=== PATIENT | female | born 1925 | race Caucasian/White ===

== ENCOUNTER 2016-09-07 11:17 | Inpatient (IN) ==
[2016-09-07] MEDS ORDERED: Levofloxacin 750 MG/150 ML 750 MG/150 ML BAG IVPB ONE (12:20)
[2016-09-07] MEDS ORDERED: Ipratropium/Albuterol Neb 3 ML IH ONE (13:13)
--- NOTE | 2016-09-07 13:13 | Emergency Department Note ---
Disposition Clinical Impression: Community acquired pneumonia, Hypoxia Pulmonary edema Qualifiers: Chronicity: acute Qualified Code(s): J81.0 - Acute pulmonary edema Disposition: Admitted As Inpatient Condition: Good Referrals: Luca Yoder MD [Primary Care Provider] - Forms: ED Satisfaction Letter Time of Disposition: 17:33 SOB HPI - General Chief Complaint: ED Shortness of Breath/Dyspnea Stated Complaint: Irregular Heart Rhythm /Fever Time Seen by Provider: 09/07/16 11:58 Source: family Mode of arrival: ambulatory Limitations: no limitations Nursing Notes Reviewed: Yes Vital Signs Reviewed: Yes - History of Present Illness Patient presents emergency room from home with complaint of cough and difficulty with breathing. She was just seen several weeks ago. Patient denies any issues with her heart at this time she is just concerned because she has been coughing so much that she has pain in the right side of her chest wall. Denies any recent illnesses aside from his cough. She has been febrile at home but on diagnoses number. Patient denies any nausea vomiting or diarrhea headache or vision change. She denies any chest pain she just has pain with inspiration at this time. Pt Subjective Complaint: shortness of breath, cough Onset (ago): day(s) Context: other Severity: moderate Consistency/Duration: constant Improves with: nothing Worsens with: lying flat, exertion Associated symptoms: Reports: pain with inspiration, fever, cough, sputum production Cough present: Yes Cough Description: Involuntary Cough Frequency: Intermittent Sputum production: Yes Sputum Amount: Small Sputum Color: White - Related Data Home Medications Medication Instructions Recorded Confirmed Allopurinol [Zyloprim] 200 mg PO DAILY PRN 01/28/16 09/07/16 Atorvastatin [Lipitor] 20 mg PO DAILY 01/28/16 09/07/16 Calcitriol 0.25 mcg PO DAILY 01/28/16 09/07/16 Enalapril Maleate [Vasotec] 10 mg PO BID 01/28/16 09/07/16 Furosemide [Lasix] 40 mg PO DAILY 01/28/16 09/07/16 Metoprolol [Lopressor] 12.5 mg PO BID 01/28/16 09/07/16 Potassium Chloride [Klor-Con] 20 meq PO DAILY 01/28/16 09/07/16 amLODIPine [Norvasc] 5 mg PO DAILY 01/28/16 09/07/16 Enoxaparin [Lovenox] 60 mg SQ DAILY 09/07/16 09/07/16 Warfarin [Coumadin] 5 mg PO 1800 09/07/16 09/07/16 Allergies Allergy/AdvReac Type Severity Reaction Status Date / Time azithromycin Allergy Hives Verified 07/16/16 07:08 All systems ED: reviewed and negative except as stated. Constitutional: Reports: fever, weakness. Denies: chills Eyes: Denies: eye discharge ENT ED: Denies: ear pain, throat pain, congestion Cardiovascular: Reports: dyspnea on exertion, orthopnea. Denies: chest pain, palpitations, edema Respiratory: Reports: cough, dyspnea, sputum production. Denies: wheezes, hemoptysis, stridor Gastrointestinal: Denies: nausea, vomiting, diarrhea Genitourinary: Denies: dysuria, frequency Musculoskeletal: Denies: back pain, neck pain Integumentary: Denies: rash Neurological: Denies: headache, weakness Endocrine: Reports: fatigue Hematological/Lymphatic: Denies: easy bleeding Past Medical History - Past Medical History Attestation: Yes The following information was validated with the patient. 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 Absent : tenderness - Respiratory Respiratory exam: Present: respiratory distress, accessory muscle use. Absent: wheezes, stridor - Cardiovascular Cardiovascular exam: Present: regular rate, normal rhythm, normal heart sounds - Abdominal Exam Abdominal exam: Present: soft, Non-Tender, normal bowel sounds. Absent: tenderness, distention, guarding, rebound, rigidity, diminished bowel sounds, Marquis's sign, Rovsing's sign, tenderness at McBurney's Point - Extremities Exam Extremities exam: Present: normal inspection, full ROM, normal capillary refill. Absent: tenderness, pedal edema - Back Exam Back exam: Present: normal inspection, full ROM. Absent: tenderness - Neurological Exam Neurological exam: Present: alert, oriented X3, CN II-XII intact, normal gait - Skin Skin exam: Present: warm, dry, intact, normal color Course Course Narrative: Patient seen and examined the time of arrival. See history of present illness. 89-year-old female presents for complaint of cough and pain with inspiration. She was just seen and evaluated and set a hospital setting approximate 6 weeks ago for irregular heart rhythm. She then had outpatient cardioversion completed several days ago. Since having a cardioversion she was started on Lovenox bridging to Coumadin. Patient denies any cough cold congestion prior to these events. Vital signs reviewed on presentation here heart rate is regular. She is borderline febrile at 99.5. Physical exam is concerning head is atraumatic pupils equal are reactive to light. Patient is lying to the left side of the bed and protecting against the right side of her chest. She has pain with deep inspiration over the right chest wall. There is no visible signs of trauma lesions or rashes at this point. Patient has diminished aeration on the right side. Abdomen is soft nontender nondistended patient was both extremities in the upper and lower distributions on a complication. She has no signs of swelling or pitting edema in the bilateral lower extremities. Both legs are symmetrical with good pulses. Patient is concerning for possible pneumonia status post multiple evaluations as an outpatient. She has had a productive cough which she describes as frothy colored sputum. She does not focally sound like fluid overload secondary to pulmonary edema but we will consider this as a differential. EKG troponin labs including BMP ordered at this time. Urinalysis and chest x-ray pending. We will continue to monitor here and treat symptoms as they provide. If the symptoms and the differential are not determined with the chest x-ray CT imaging might be warranted. Patient does not have any acute signs of pulmonary emboli and she has been on Lovenox and Coumadin for the last 2 weeks. Low clinical suspicion of this at this time. Disposition pending workup and treatment course. - Reevaluation(s) Reevaluation #1: Chest x-ray is negative. Patient is still hypoxic. CT imaging of the chest ordered despite the patient's borderline creatinine. I would be given as tolerated. Concern is noted for interstitial disease or possible blood clot. Patient family forms are comfortable with this plan. Patient is otherwise resting comfortably in the bed at this time. This decision was made in conjunction with the idea the patient is on Lovenox and does have chronic kidney disease. The risk of not definitively diagnosing intrathoracic related issues are more concerning than treatment course at this time. Disposition pending evaluation. This decision was made in conjunction with the family and the patient Time: 15:15 Reevaluation #2: Patient found to have groundglass infiltrate as well as possible pulmonary edema. Based on the CT angios findings no signs of acute pulmonary emboli. I discussed this with the hospitalist nurse practitioner sydnie gonzalez. I reviewed the symptoms presentation and hypoxia. I discussed the recommendations for diuresis with Lasix and the patient's chronic kidney insufficiency. I also discussed the contrast bolus is to make sure that we keep a close eye on her kidney function and make sure we do not cause a detriment secondary to this evaluation. There are no other questions or concerns at this time. Patient is otherwise resting comfortably in the bed family was informed and then she is in no distress. Patient will be admitted for definitive evaluation and management here in this facility. We will continue to monitor here in the emergency room until he admission process is completed Time: 17:32 Vital Signs Temperature 99.4 F 09/07/16 11:30 Pulse Rate 71 09/07/16 11:30 Respiratory Rate 24 09/07/16 11:30 Blood Pressure 123/71 09/07/16 11:30 O2 Sat by Pulse Oximetry 92 09/07/16 11:30 Temperature 99.4 F 09/07/16 11:30 Pulse Rate 68 09/07/16 15:05 Respiratory Rate 18 09/07/16 15:05 Blood Pressure 136/72 09/07/16 15:05 O2 Sat by Pulse Oximetry 96 09/07/16 15:05 Oxygen Delivery Oxygen Delivery Room Air Shortness of Breath/Dyspnea - MDM Narrative Medical decision making narrative: Hypoxia, cough - Medical Records Medical records reviewed: Yes I reviewed the patient's medical records. - Lab Data Lab results reviewed: Yes I reviewed the patient's lab results. Result diagrams: 09/07/16 13:32 09/07/16 13:32 Lab Results 09/07/16 09/07/16 09/07/16 Range/Units 13:32 13:32 13:32 WBC 12.4 H (4.3-11.1) K/mcL RBC 3.75 L (3.82-4.97) M/mcL Hgb 11.7 (11.5-15.4) g/dL Hct 34.6 L (35.3-44.9) % MCV 92.3 (83.0-100.0) fL MCH 31.2 (28.0-33.3) pg MCHC 33.8 (31.6-35.5) g/dL RDW 14.6 H (11.5-14.5) % Plt Count 117 L (140-400) K/mcL MPV 11.2 (9.4-12.4) fL Immature Gran % 0.5 (0-4) % Seg Neutrophils % 74.3 % Lymphocytes % 9.3 % Monocytes % 15.8 % Eosinophils % 0.0 % Basophils % 0.1 % Neutrophils # 9.2 H (1.6-8.9) K/mcL Lymphocytes # 1.2 (0.6-4.6) K/mcL Monocytes # 2.0 H (0.0-1.3) K/mcL Eosinophils # 0.0 (0.0-0.6) K/mcL Basophils # 0.0 (0.0-0.2) K/mcL PT 28.3 H (9.4-12.1) Seconds INR 2.6 APTT 72.6 H (26.0-36.0) Seconds Sodium 128 L (136-145) mEq/L Potassium 4.0 (3.5-4.5) mEq/L Chloride 95 L (98-109) mEq/L Carbon Dioxide 27 (19-29) mEq/L BUN 21 H (7-20) mg/dL Creatinine 1.41 H (0.57-1.11) mg/dL Est GFR ( Amer) 43 L (> 60) Est GFR (Non-Af Amer) 35 L (> 60) BUN/Creatinine Ratio 15 (6-26) Glucose 140 H (70-99) mg/dL Calculated Osmolality 271 L (280-300) Lactic Acid (0.5-2.2) mmol/L Calcium 9.4 (8.6-10.8) mg/dL Phosphorus 2.1 L (2.3-4.7) mg/dL Magnesium 2.0 (1.6-2.6) mg/dL Total Bilirubin 1.5 H (0.2-1.2) mg/dL Direct Bilirubin 0.7 H (0.0-0.5) mg/dL Indirect Bilirubin 0.8 (0.0-1.2) mg/dL AST 22 (5-34) Units/L ALT 19 (0-55) Units/L Alkaline Phosphatase 63 (38-126) Units/L Troponin I (0-0.03) ng/mL B-Natriuretic Peptide (0-100) pg/mL Serum Total Protein 7.4 (6.0-8.3) g/dL Albumin 3.4 L (3.5-5.0) g/dL Globulin 4.0 H (2.4-3.5) g/dL Albumin/Globulin Ratio 0.9 L (1.1-2.2) 09/07/16 09/07/16 09/07/16 Range/Units 13:32 13:32 13:32 WBC (4.3-11.1) K/mcL RBC (3.82-4.97) M/mcL Hgb (11.5-15.4) g/dL Hct (35.3-44.9) % MCV (83.0-100.0) fL MCH (28.0-33.3) pg MCHC (31.6-35.5) g/dL RDW (11.5-14.5) % Plt Count (140-400) K/mcL MPV (9.4-12.4) fL Immature Gran % (0-4) % Seg Neutrophils % % Lymphocytes % % Monocytes % % Eosinophils % % Basophils % % Neutrophils # (1.6-8.9) K/mcL Lymphocytes # (0.6-4.6) K/mcL Monocytes # (0.0-1.3) K/mcL Eosinophils # (0.0-0.6) K/mcL Basophils # (0.0-0.2) K/mcL PT (9.4-12.1) Seconds INR APTT (26.0-36.0) Seconds Sodium (136-145) mEq/L Potassium (3.5-4.5) mEq/L Chloride (98-109) mEq/L Carbon Dioxide (19-29) mEq/L BUN (7-20) mg/dL Creatinine (0.57-1.11) mg/dL Est GFR ( Amer) (> 60) Est GFR (Non-Af Amer) (> 60) BUN/Creatinine Ratio (6-26) Glucose (70-99) mg/dL Calculated Osmolality (280-300) Lactic Acid 1.1 (0.5-2.2) mmol/L Calcium (8.6-10.8) mg/dL Phosphorus (2.3-4.7) mg/dL Magnesium (1.6-2.6) mg/dL Total Bilirubin (0.2-1.2) mg/dL Direct Bilirubin (0.0-0.5) mg/dL Indirect Bilirubin (0.0-1.2) mg/dL AST (5-34) Units/L ALT (0-55) Units/L Alkaline Phosphatase (38-126) Units/L Troponin I 0.04 H* (0-0.03) ng/mL B-Natriuretic Peptide 1550 H (0-100) pg/mL Serum Total Protein (6.0-8.3) g/dL Albumin (3.5-5.0) g/dL Globulin (2.4-3.5) g/dL Albumin/Globulin Ratio (1.1-2.2) //17 Range/Units 16:05 WBC (4.3-11.1) K/mcL RBC (3.82-4.97) M/mcL Hgb (11.5-15.4) g/dL Hct (35.3-44.9) % MCV (83.0-100.0) fL MCH (28.0-33.3) pg MCHC (31.6-35.5) g/dL RDW (11.5-14.5) % Plt Count (140-400) K/mcL MPV (9.4-12.4) fL Immature Gran % (0-4) % Seg Neutrophils % % Lymphocytes % % Monocytes % % Eosinophils % % Basophils % % Neutrophils # (1.6-8.9) K/mcL Lymphocytes # (0.6-4.6) K/mcL Monocytes # (0.0-1.3) K/mcL Eosinophils # (0.0-0.6) K/mcL Basophils # (0.0-0.2) K/mcL PT (9.4-12.1) Seconds INR APTT (26.0-36.0) Seconds Sodium (136-145) mEq/L Potassium (3.5-4.5) mEq/L Chloride (98-109) mEq/L Carbon Dioxide (19-29) mEq/L BUN (7-20) mg/dL Creatinine (0.57-1.11) mg/dL Est GFR ( Amer) (> 60) Est GFR (Non-Af Amer) (> 60) BUN/Creatinine Ratio (6-26) Glucose (70-99) mg/dL Calculated Osmolality (280-300) Lactic Acid 1.3 (0.5-2.2) mmol/L Calcium (8.6-10.8) mg/dL Phosphorus (2.3-4.7) mg/dL Magnesium (1.6-2.6) mg/dL Total Bilirubin (0.2-1.2) mg/dL Direct Bilirubin (0.0-0.5) mg/dL Indirect Bilirubin (0.0-1.2) mg/dL AST (5-34) Units/L ALT (0-55) Units/L Alkaline Phosphatase (38-126) Units/L Troponin I (0-0.03) ng/mL B-Natriuretic Peptide (0-100) pg/mL Serum Total Protein (6.0-8.3) g/dL Albumin (3.5-5.0) g/dL Globulin (2.4-3.5) g/dL Albumin/Globulin Ratio (1.1-2.2) - Radiology Data Radiology results reviewed: Yes I reviewed the patient's radiology results. - EKG Data EKG attestation: Yes I reviewed and interpreted this EKG. EKG shows normal: Reports: sinus rhythm, axis, intervals, QRS complexes, ST-T waves Rate: Reports: normal Rhythm: Reports: NSR [place]/QRS: Reports: normal When compared to previous EKG there are: no significant changes Interpretation: Reports: no acute changes, unchanged when compared to prior tracing (date) (07/16/16) Critical Care Time Critical Care Time: Yes Total Critical Care Time: 45 Attestation: Critical care performed: Time is exclusive of separately billable procedures. Time includes: direct patient care, patient reassessment, coordination of patient care, interpretation of data (laboratory data, radiology data, and respiratory data), review of patient's medical records, medical consultation and documentation of patient care. Procedures included in critical care time: Procedures excluded from critical care time:
[2016-09-07 13:41] LABS: Basophils % 0.1 %; Hematocrit 34.6 % (35.3-44.9); Hemoglobin 11.7 g/dL (11.5-15.4); Immature Granulocytes % 0.5 % (0-4); Lymphocytes # 1.2 K/mcL (0.6-4.6); Lymphocytes % 9.3 %; Mean Corpuscular HGB Conc 33.8 g/dL (31.6-35.5); Mean Corpuscular Hemoglobin 31.2 pg (28.0-33.3); Mean Corpuscular Volume 92.3 fL (83.0-100.0); Mean Platelet Volume 11.2 fL (9.4-12.4); Monocytes % 15.8 %; Neutrophils # 9.2 K/mcL (1.6-8.9); Platelet Count 117 K/mcL (140-400); Red Blood Count 3.75 M/mcL (3.82-4.97); Red Cell Distribution Width 14.6 % (11.5-14.5); Segmented Neutrophils % 74.3 %
[2016-09-07 13:48] LABS: INR 2.6; Prothrombin Time 28.3 Seconds (9.4-12.1)
[2016-09-07 13:50] LABS: Activated Partial Thrombo Time 72.6 Seconds (26.0-36.0)
[2016-09-07 13:55] LABS: Albumin 3.4 g/dL (3.5-5.0); Albumin/Globulin Ratio 0.9 (1.1-2.2); Bilirubin,Direct 0.7 mg/dL (0.0-0.5); Bilirubin,Indirect 0.8 mg/dL (0.0-1.2); Bilirubin,Total 1.5 mg/dL (0.2-1.2); Calcium 9.4 mg/dL (8.6-10.8); Phosphorous 2.1 mg/dL (2.3-4.7); Total Protein 7.4 g/dL (6.0-8.3)
[2016-09-07] MEDS ORDERED: 0.9 % Sodium Chloride 1,000 ML IVC SCH ×2 (15:15→21:21)
[2016-09-07] MEDS ORDERED: Furosemide 80 MG in 0.9 % Sodium Chloride 50 ML IVPB ONE (17:17)
[2016-09-07] MEDS ORDERED: *HR* Morphine 2 MG/ML SYRINGE IVP PRN (21:13)
[2016-09-07] MEDS ORDERED: Levalbuterol Neb 1.25 MG/3 ML IH PRN (21:13)
[2016-09-07] MEDS ORDERED: Acetaminophen 325 MG TABLET PO PRN (21:13)
[2016-09-07] MEDS ORDERED: Naloxone 0.4 MG/ML INJ IVP PRN (21:13)
--- NOTE | 2016-09-07 21:52 | Internal Med History&Physical ---
Date of Encounter: 09/07/16 Time of Encounter: 20:50 Assessment and Plan (1) Community acquired pneumonia Current visit: Yes Status: Acute 1. Blood cultures obtained in ER. 2. Patient received a dose of Levaquin in ER -- will continue Levaquin. 3. Xopenex Aerosols PRN for wheezing. 4. Follow cultures and clinically. 5. Given presenting symptoms and history, I anticipate patient will require at least 2 -3 days of hospitalization given her pneumonia and co-morbidities. 6. Wean oxygen as tolerated. (2) CKD (chronic kidney disease) stage 3, GFR 30-59 ml/min Current visit: Yes Status: Chronic 1. Renal funtcion at baseline. 2. Pt received IVF per ER after IV contrast dyeload. Will stop IV fluids tonight and hold off on resuming home diuretics until tomorrow morning. 3. Will follow renal function. 4. Consult Nephrology (Dr. Mccarthy) if her renal function changes. (3) Atrial fibrillation Current visit: Yes Status: Chronic 1. Pt rate controlled and appears to be in and out of NSR. 2. On Coumadin. Monitor PT/INR daily. 3. Continue home meds and adjust as appropriate. Qualifiers: Atrial fibrillation type: chronic Qualified Code(s): I48.2 - Chronic atrial fibrillation (4) CAD (coronary artery disease) Current visit: Yes Status: Chronic 1. CP is pleuritic in nature and likely due to pneumonia. 2. Cycle troponins and EKG's. 3. Will consult cardiology and order ECHO if necessary. 4. Presently, I suspect troponin elevation is due to pneumonia and demand ischemia. Patient does not have anginal symptoms. Qualifiers: Coronary Disease-Associated Artery/Lesion type: [place] artery [place] vs. transplanted heart: [place] heart Associated angina: without angina Qualified Code(s): I25.10 - Atherosclerotic heart disease of [place] coronary artery without angina pectoris (5) DVT prophylaxis Current visit: Yes Status: Acute 1. On Coumadin -- PT/INR therapeutic. Internal Medicine - H&P: HPI Chief complaint: CP; cough, fever Admitted From: Emergency Dept Plans for Post Hospital Care: Home History of present illness: Ms. Simons is a 89 year old female who presents with a one-week history of cough, chest congestion, low-grade fever, and pleuritic type chest pain with coughing. She was actually admitted to [facility] prior to the above complaints. This hospital admission was for her atrial fibrillation with rapid ventricular response. She states she had to be cardioverted during that admission and has done well since then. However, she then later developed the above symptoms which have progressively worsened throughout the week. Workup in the ER included CT angiogram of the chest, which was negative for pulmonary embolus but was concerning for an infectious process. She was given a dose of antibiotics and some IV fluids to help preserve her kidney function after IV contrast dyeload. She was subsequently admitted to the hospitalist service. Upon my assessment of the patient, she reiterates the above history. She has a history of heart failure, but her last echo revealed an ejection fraction of 60% . I presume her heart failure is secondary to diastolic dysfunction. She denies any weight gain, increased abdominal girth, or lower extremity edema. She denies any vomiting or diarrhea. She states that her chest pain was associated with her cough and deep inspiration. Past Med Surg Social Fam HX - Past Medical History Attestation: Yes The following information was validated with the patient. Source: patient, old records reviewed Medical history: arthritis, atrial fibrillation, coronary artery disease, hyperlipidemia, hypertension, myocardial infarction Psychiatric history: no psych history - Past Surgical History Surgical History: , coronary bypass (CABG) - Social History Smoking Status: Never smoker Smokeless Tobacco Status: No Alcohol use: none Drug use: none Current living situation: Home, With Family Activity Level: Independent ambulation Recent Out of Country Travel Within the Last 8 Weeks: No - Family History Mother Living Status: Hx Family Cardiac Disorders: Yes Father History Unknown: Yes Living Status: Internal Medicine - H&P: Meds Allopurinol [Zyloprim] 200 mg PO DAILY PRN 01/28/16 [History] Atorvastatin [Lipitor] 20 mg PO DAILY 01/28/16 [History] Calcitriol 0.25 mcg PO DAILY 01/28/16 [History] Enalapril Maleate [Vasotec] 10 mg PO BID 01/28/16 [History] Furosemide [Lasix] 40 mg PO DAILY 01/28/16 [History] Metoprolol [Lopressor] 12.5 mg PO BID 01/28/16 [History] Potassium Chloride [Klor-Con] 20 meq PO DAILY 01/28/16 [History] amLODIPine [Norvasc] 5 mg PO DAILY 01/28/16 [History] Enoxaparin [Lovenox] 60 mg SQ DAILY 09/07/16 [History] Warfarin [Coumadin] 5 mg PO 1800 09/07/16 [History] Allergies azithromycin Allergy (Verified 07/16/16 07:08) Hives - Constitutional Constitutional: chills, fever(s), no night sweats, no weight gain, no weight loss - EENT Eyes: no blurry vision, no change in vision Ears: no ear pain, no tinnitus Nose, mouth and throat: no nasal congestion, no sinus pressure, no sore throat - Cardiovascular Cardiovascular ROS IM: chest pain, no diaphoresis, no lightheadedness, no palpitations - Respiratory Respiratory: cough, pain on inspiration, chest congestion, change in phlegm color, pain with cough, no dyspnea, no dyspnea on exertion - Gastrointestinal Gastrointestinal: no abdominal pain, no diarrhea, no hematemesis, no hematochezia, no melena, no nausea, no vomiting - Genitourinary Genitourinary: no dysuria, no flank pain, no hematuria - Musculoskeletal Musculoskeletal ROS IM: no arthralgias, no back pain - Integumentary Integumentary IM: no rash, no jaundice - Neurological Neurological ROS: no dizziness, no focal weakness, no frequent falls, no headache(s) - Psychiatric Psychiatric: no anxiety, no depression - Endocrine Endocrine IM: no polydipsia, no polyuria - Hematologic/Lymphatic Hematologic/Lymphatic: easy bruising, no lymphadenopathy - Allergic/Immunologic Allergic/Immunologic: no wheezing, no GI upset with certain foods - Constitutional Vitals: Temp Pulse Resp BP Pulse Ox 98.7 F 74 18 135/68 94 09/07/16 19:12 09/07/16 19:12 09/07/16 19:12 09/07/16 19:12 09/07/16 19:12 General appearance: Present: cooperative, A&O X 3, pleasant, no acute distress - Head Head exam: Present: atraumatic, normal inspection - Eye Eye exam: Present: EOMI, normal appearance, PERRL. Absent: scleral icterus Pupils: Present: normal accommodation - ENT ENT exam: Present: mucous membranes moist, normal exam - Neck Neck exam general surgery: Present: full ROM, supple. Absent: lymphadenopathy, tenderness - Expanded Neck Exam Neck exam: Absent: carotid bruit - Respiratory Respiratory exam: Present: rales (right lower lobe). Absent: accessory muscle use, chest wall tenderness, respiratory distress, rhonchi, wheezes - Cardiovascular Cardiovascular exam: Present: irregular rhythm, +S1, +S2. Absent: diastolic murmur, JVD, systolic murmur - GI/Abdominal GI/Abdominal exam: Present: normal bowel sounds, soft. Absent: guarding, hepatomegaly, mass, rebound, splenomegaly, tenderness - Extremities Exam Extremities exam: Present: full ROM, normal capillary refill, warm, radial pulses palpable and symetrical. Absent: calf tenderness, joint swelling, pedal edema, tenderness - Back Exam Back exam: Present: normal inspection. Absent: CVA tenderness (L), CVA tenderness (R) - Neurological Exam Neurological exam: Present: alert, CN II-XII intact, oriented X3, no focal deficits - Psychiatric Psychiatric exam: Present: normal affect, normal mood - Skin Skin exam: Present: dry, warm. Absent: rash Internal Med - H&P Results - Labs CBC & Chem 7: 09/07/16 13:32 09/07/16 13:32 - EKG Data -: EKG Interpreted by Myself - EKG Data Prior EKG available for review: yes When compared to previous EKG: there is no significant change - Diagnostic Studies Chest x-ray Status: image reviewed by me (negative; CTA report reviewed as well) - VTE Reasons for not Prescribing Prophylaxis: Not indicated-Anticoagulated or INR therapeutic
[2016-09-08 04:48] LABS: Basophils % 0.1 %; Eosinophils % 0.1 %; Hematocrit 31.7 % (35.3-44.9); Hemoglobin 11.1 g/dL (11.5-15.4); Immature Granulocytes % 0.2 % (0-4); Lymphocytes % 9.9 %; Mean Corpuscular Hemoglobin 32.3 pg (28.0-33.3); Mean Corpuscular Volume 92.2 fL (83.0-100.0); Mean Platelet Volume 11.7 fL (9.4-12.4); Monocytes # 1.6 K/mcL (0.0-1.3); Monocytes % 16.6 %; Neutrophils # 7.2 K/mcL (1.6-8.9); Platelet Count 100 K/mcL (140-400); Red Blood Count 3.44 M/mcL (3.82-4.97); Red Cell Distribution Width 14.6 % (11.5-14.5); Segmented Neutrophils % 73.1 %
[2016-09-08 04:58] LABS: INR 2.6; Prothrombin Time 28.5 Seconds (9.4-12.1)
[2016-09-08 05:13] LABS: Albumin 2.8 g/dL (3.5-5.0); Albumin/Globulin Ratio 0.8 (1.1-2.2); Bilirubin,Total 1.2 mg/dL (0.2-1.2); Calcium 8.9 mg/dL (8.6-10.8); Chol/HDL Ratio 2.4 (0-4.9); Globulin 3.6 g/dL (2.4-3.5); Magnesium 1.9 mg/dL (1.6-2.6); Potassium 3.6 mEq/L (3.5-4.5); Total Protein 6.4 g/dL (6.0-8.3)
[2016-09-08] MEDS: Furosemide 40 MG TABLET PO SCH (08:41)
[2016-09-08] MEDS: amLODIPine 5 MG TABLET PO SCH (08:41)
[2016-09-08 13:41] LABS: Bilirubin,Urine Negative (Negative); Blood,Urine Negative (Negative); Clarity,Urine Cloudy (Clear); Color,Urine Yellow (Yellow); Glucose,Urine (UA) Normal (Normal); Ketones,Urine Negative (Negative); Leukocyte Esterase,Urine Moderate (Negative); Nitrite,Urine Negative (Negative); PH,Urine 6.5 pH Units (5.0-8.0); Protein,Urine 30 mg/dL (Neg-Trace); Specific Gravity,Urine 1.021 (1.010-1.025); Urobilinogen,Urine Normal (Normal)
[2016-09-08 13:52] LABS: Squamous Epithelial Cell,Urine Moderate per lpf (None-Few)
[2016-09-08 13:53] LABS: Bacteria,Urine Moderate per hpf (None-Few)
--- NOTE | 2016-09-08 15:23 | Electrocardiograph Report ---
[place] [id number] Test Date: 2016-09-07 Pat Name: Vanita Simons Department: [facility] Room: 2A Gender: F Title Lawyer: ENID : [id number] Requested By: Vladislav Wilde Order Number: [id number] Reading MD: Hai Esquivel MD Measurements Intervals [place] Rate: 68 P: 41 AR: 199 QRS: 92 QRSD: 84 T: 61 QT: 392 QTc: 410 Interpretive Statements SINUS RHYTHM BORDERLINE RIGHT AXIS DEVIATION Electronically Signed On 09-08-2016 15:21:13 EDT by Hai Esquivel MD
--- NOTE | 2016-09-08 17:47 | Internal Med Progress Note ---
<Griffin Pedersen - Last Filed: 09/08/16 17:42> Date of Encounter: 09/08/16 Time of Encounter: 10:15 - Assessment and plan (1) Community acquired pneumonia Current Visit: Yes Status: Acute Assessment and plan: Patient had shortness of breath and pleuritic chest pain upon admission. -She also had cough and sputum production. -Patient was given Levaquin in the ER. -She had a low-grade fever on admission, at 99.4. -Chest imaging did not reveal any consolidation or any signs of pneumonia other than a trace right-sided pleural effusion. -Patient is receiving levofloxacin. -Continue antibiotics. (2) Atrial fibrillation Current Visit: Yes Status: Chronic Assessment and plan: Patient's rate is controlled. Patient did not have an irregular rhythm on physical examination. -Patient's heart rate this morning was 89. -Patient is on Coumadin. -Continue to monitor PT/INR. Qualifiers: Atrial fibrillation type: chronic Qualified Code(s): I48.2 - Chronic atrial fibrillation (3) CAD (coronary artery disease) Current Visit: Yes Status: Chronic Assessment and plan: Patient's chest pain was on the right side of her chest, and was pleuritic in nature. Troponin has been ordered. Qualifiers: Coronary Disease-Associated Artery/Lesion type: [place] artery [place] vs. transplanted heart: council heart Associated angina: without angina Qualified Code(s): I25.10 - Atherosclerotic heart disease of council coronary artery without angina pectoris (4) CKD (chronic kidney disease) stage 3, GFR 30-59 ml/min Current Visit: Yes Status: Chronic Assessment and plan: Continue to follow patient's renal function. Patient's creatinine was 1.66 this morning (5) DVT prophylaxis Current Visit: Yes Status: Acute Assessment and plan: Patient is on Coumadin. PT and INR are therapeutic. - Subjective Interval history: Patient was seen and examined at bedside this morning. She states that she is feeling much better since her admission. She denies having any shortness of breath at the moment. She also denies having any cough. She states that the pain that was in the right side of her chest when she took a deep breath and is now gone. Patient has no complaints at this time. She denies cough, fever, chills, chest pain. - Constitutional Vitals: Temp Pulse Resp BP Pulse Ox 98.3 F 80 16 130/69 93 09/08/16 15:58 09/08/16 15:58 09/08/16 15:58 09/08/16 15:58 09/08/16 15:58 General appearance: Present: cooperative, pleasant, no acute distress - Head Head exam: Present: atraumatic, normocephalic - Neck Neck exam general surgery: Present: supple, trachea midline. Absent: lymphadenopathy - Respiratory Respiratory exam: Present: CTAB. Absent: accessory muscle use, rales, rhonchi, wheezes - Cardiovascular Cardiovascular exam: Present: RRR, +S1, +S2. Absent: diastolic murmur, gallop, rubs, systolic murmur - Extremities Exam Extremities exam: Present: warm, radial pulses palpable and symetrical. Absent : cyanotic - Skin Skin exam: Present: dry, intact Internal Medicine: Result - Labs CBC & Chem 7: 09/08/16 03:52 09/08/16 03:52 Labs: Short CBC 09/08/16 Range/Units 03:52 WBC 9.8 (4.3-11.1) K/mcL Hgb 11.1 L (11.5-15.4) g/dL Hct 31.7 L (35.3-44.9) % Plt Count 100 L (140-400) K/mcL Neutrophils # 7.2 (1.6-8.9) K/mcL BMP 09/08/16 03:52 Sodium 133 L Potassium 3.6 Chloride 100 Carbon Dioxide 28 BUN 21 H Creatinine 1.66 H Glucose 109 H Calcium 8.9 Cardiac Enzymes 09/07/16 09/08/16 09/08/16 Range/Units 22:01 03:52 09:25 Troponin I 0.03 0.03 0.02 (0-0.03) ng/mL Liver Function 09/08/16 Range/Units 03:52 Total Bilirubin 1.2 (0.2-1.2) mg/dL AST 15 (5-34) Units/L ALT 14 (0-55) Units/L Alkaline Phosphatase 52 (38-126) Units/L Albumin 2.8 L (3.5-5.0) g/dL Urine 09/08/16 Range/Units 13:30 Urine Color Yellow (Yellow) Urine Clarity Cloudy A (Clear) Urine pH 6.5 (5.0-8.0) pH Units Ur Specific [place] 1.021 (1.010-1.025) Urine Protein 30 H (Neg-Trace) mg/dL Urine Glucose (UA) Normal (Normal) mg/dL - ABG Interpretation ABG results: PT/INR, D-dimer PT 28.5 Seconds (9.4-12.1) H 09/08/16 03:52 - VTE Reasons for not Prescribing Prophylaxis: Not indicated-Anticoagulated or INR therapeutic Consult Discharge Plan - Plan Referrals: Luca Yoder MD [Primary Care Provider] - 09/15/16 1:00 pm (web request 2016) <Sabas Lugo - Last Filed: 09/08/16 18:03> Date of Encounter: 09/08/16 - Constitutional Vitals: Temp Pulse Resp BP Pulse Ox 98.3 F 80 16 130/69 93 09/08/16 15:58 09/08/16 15:58 09/08/16 15:58 09/08/16 15:58 09/08/16 15:58 Internal Medicine: Result - Labs CBC & Chem 7: 09/08/16 03:52 09/08/16 03:52 Labs: Short CBC 09/08/16 Range/Units 03:52 WBC 9.8 (4.3-11.1) K/mcL Hgb 11.1 L (11.5-15.4) g/dL Hct 31.7 L (35.3-44.9) % Plt Count 100 L (140-400) K/mcL Neutrophils # 7.2 (1.6-8.9) K/mcL BMP 09/08/16 03:52 Sodium 133 L Potassium 3.6 Chloride 100 Carbon Dioxide 28 BUN 21 H Creatinine 1.66 H Glucose 109 H Calcium 8.9 Cardiac Enzymes 09/07/16 09/08/16 09/08/16 Range/Units 22:01 03:52 09:25 Troponin I 0.03 0.03 0.02 (0-0.03) ng/mL Liver Function 09/08/16 Range/Units 03:52 Total Bilirubin 1.2 (0.2-1.2) mg/dL AST 15 (5-34) Units/L ALT 14 (0-55) Units/L Alkaline Phosphatase 52 (38-126) Units/L Albumin 2.8 L (3.5-5.0) g/dL Urine 09/08/16 Range/Units 13:30 Urine Color Yellow (Yellow) Urine Clarity Cloudy A (Clear) Urine pH 6.5 (5.0-8.0) pH Units Ur Specific [place] 1.021 (1.010-1.025) Urine Protein 30 H (Neg-Trace) mg/dL Urine Glucose (UA) Normal (Normal) mg/dL - ABG Interpretation ABG results: PT/INR, D-dimer PT 28.5 Seconds (9.4-12.1) H 09/08/16 03:52 - Attending Attestation I examined this patient and my medical decision-making was reviewed with the Resident Physician on 09/08/16. I agree with the documented findings, disposition and treatment plan as described except to the extent set forth below. 89 F with CHFrEF, CKD III, admitted and being managed for pneumonia and pleuritic chest pain Has no complains at time of review Physical exam: VSS< clinically euvolemic, no JVD. No leg edema Labs and imaging reviewed: leukocytosis on presentation has resolved, renal function at baseline. CTA noted. A/P: Continue antibiotics, monitor renal function, patient received contrast in ER, and continue home meds. Rest of details as in resident physicians documentation
[2016-09-08] MEDS ORDERED: *HR* Warfarin 5 MG TABLET PO SCH ×2 (18:00)
[2016-09-08] MEDS ORDERED: Warfarin perPT PO PRN (18:00)
[2016-09-08] MEDS ORDERED: *HR* Warfarin 5 MG TABLET PO ONE (18:00)
[2016-09-09 05:42] LABS: Prothrombin Time 21.5 Seconds (9.4-12.1)
[2016-09-09 05:56] LABS: Calcium 9.1 mg/dL (8.6-10.8); Potassium 3.7 mEq/L (3.5-4.5)
[2016-09-09] MEDS: Furosemide 40 MG TABLET PO SCH (08:36)
[2016-09-09] MEDS: amLODIPine 5 MG TABLET PO SCH (08:36)
[2016-09-09 11:32] VITALS: BP 135/73
--- NOTE | 2016-09-09 11:43 | Discharge Summary ---
<Griffin Pedersen - Last Filed: 09/09/16 11:41> Date of Encounter: 09/09/16 Time of Encounter: 10:15 - Discharge Diagnosis (1) Community acquired pneumonia Priority: Primary Status: Acute Comments: Patient had shortness of breath and pleuritic chest pain upon admission. -She also had cough and sputum production. -Patient was given Levaquin in the ER. -She had a low-grade fever on admission, at 99.4. -Chest imaging did not reveal any consolidation or any signs of pneumonia other than a trace right-sided pleural effusion. -Patient is receiving levofloxacin. -Patient will be given 750 mg of Levaquin by mouth for 4 more days after her discharge. (2) Atrial fibrillation Priority: Secondary Status: Chronic Comments: Patient's rate is controlled. Patient did not have an irregular rhythm on physical examination. -Patient is on Coumadin. Qualifiers: Atrial fibrillation type: chronic Qualified Code(s): I48.2 - Chronic atrial fibrillation (3) CKD (chronic kidney disease) stage 3, GFR 30-59 ml/min Priority: Secondary Status: Chronic Comments: Patient's creatinine was 1.51 this morning. This has improved from 1.66 yesterday. (4) DVT prophylaxis Priority: Secondary Status: Acute Comments: Patient is on Coumadin. PT and INR are therapeutic. - Discharge Medications Prescriptions: Levofloxacin [Levaquin] 750 mg PO DAILY #4 tablet Home Medications: Allopurinol [Zyloprim] 200 mg PO DAILY PRN 01/28/16 [History] Atorvastatin [Lipitor] 20 mg PO DAILY 01/28/16 [History] Calcitriol 0.25 mcg PO DAILY 01/28/16 [History] Enalapril Maleate [Vasotec] 10 mg PO BID 01/28/16 [History] Furosemide [Lasix] 40 mg PO DAILY 01/28/16 [History] Metoprolol [Lopressor] 12.5 mg PO BID 01/28/16 [History] Potassium Chloride [Klor-Con] 20 meq PO DAILY 01/28/16 [History] amLODIPine [Norvasc] 5 mg PO DAILY 01/28/16 [History] Enoxaparin [Lovenox] 60 mg SQ DAILY 09/07/16 [History] Warfarin [Coumadin] 5 mg PO 1800 09/07/16 [History] Levofloxacin [Levaquin] 750 mg PO DAILY #4 tablet 09/09/16 [Rx] Allergies/Adverse Reactions: Allergies azithromycin Allergy (Verified 07/16/16 07:08) Hives Procedures/tests Complete & Pending: Procedures Performed prior 72 hours Category Date Time Status ECG 12 lead ECG [ECG] AM 0600 Y 09/08/16 06:00 Completed Date of admission: 09/07/16 17:34 Primary care physician: Luca Yoder MD Consults: 09/07/16 18:54 Consult to Nutrition [CONS] Routine Comment: Consulting Provider: NUTRITION Reason for Dietary Consult: MST Score Discharging clinician: Griffin Pedersen Anticipated date of discharge: 09/09/16 - Patient Status Disposition: Home, Self-Care Overall status at discharge: patient is progressing back to baseline - Discharge Instructions Follow Up With: Luca Yoder MD [Primary Care Provider] - 09/15/16 1:00 pm (web request 2016) - Diet and Activity Activity: increase activity as tolerated Diet: advance to your usual diet Hospital course: Ms. Simons is a 89 year old female who first presented to the ER with chief complaint of shortness of breath and pleuritic chest pain. She also had a cough on admission. On admission patient denied nausea, vomiting, fever, chills , or sputum production. Patient did have a temperature of 99.4 in the hospital when she first arrived. She stated that the pain in her chest was worse when trying to take a deep breath in. There is no sign of trauma or lesions on the right side of her nose. Blood cultures were obtained in the ER, and Levaquin was started. Patient's condition began to improve. After her admission, patient denied having any shortness of breath, cough, or right-sided pleuritic chest pain. Chest x-ray and CT were obtained. Imaging did not show any acute process. No effusion or focal process was seen with chest x-ray. Chest CT revealed a trace right-sided pleural effusion. EKG was obtained, and only showed sinus rhythm and borderline right axis deviation. Patient's condition in the hospital had improved after her admission. Patient's temperature returned to normal after her first day in the hospital. This morning, she denied having nausea, vomiting, chest pain, shortness of breath, fever or chills , or sputum production. Patient will be placed on 750 mg of Levaquin by mouth for 4 more days after her admission. - Time Spent with Patient Total time spent providing and/or coordinating discharge services: Greater than 30 minutes - Constitutional Vitals: Temp Pulse Resp BP Pulse Ox 98.2 F 75 15 135/73 94 09/09/16 11:29 09/09/16 11:29 09/09/16 11:29 09/09/16 11:29 09/09/16 07:34 General appearance: Present: cooperative, pleasant, no acute distress - Head Head exam: Present: atraumatic, normocephalic - Neck Neck exam general surgery: Present: supple, trachea midline. Absent: lymphadenopathy - Respiratory Respiratory exam: Present: CTAB. Absent: accessory muscle use, rales, rhonchi, wheezes - Cardiovascular Cardiovascular exam: Present: RRR, +S1, +S2. Absent: diastolic murmur, gallop, rubs, systolic murmur - Skin Skin exam: Present: dry, intact - VTE Reasons for not Prescribing Prophylaxis: Not indicated-Anticoagulated or INR therapeutic <Steve Leija - Last Filed: 09/09/16 14:25> Date of Encounter: 09/09/16 Procedures/tests Complete & Pending: Procedures Performed prior 72 hours Category Date Time Status ECG 12 lead ECG [ECG] AM 0600 Y 09/08/16 06:00 Completed Date of admission: 09/07/16 17:34 Primary care physician: Luca Yoder MD Consults: 09/07/16 18:54 Consult to Nutrition [CONS] Routine Comment: Consulting Provider: NUTRITION Reason for Dietary Consult: MST Score 09/09/16 11:44 Consult to Preschool Teacher [CONS] Routine Reason for SW Consult: power of state attorney [place] Hospital course: Ms. Simons is a 89 year old female - Time Spent with Patient Total time spent providing and/or coordinating discharge services: - Constitutional Vitals: Temp Pulse Resp BP Pulse Ox 98.2 F 75 15 135/73 94 09/09/16 11:29 09/09/16 11:29 09/09/16 11:29 09/09/16 11:29 09/09/16 07:34 - Attending Attestation Past medical history: atrial fibrillation, coronary artery disease, hyperlipidemia, hypertension, myocardial infarction Possible gram-negative community-acquired pneumonia Continue Levaquin for 4 more days starting on 09/10/2016 as the patient has received 3 doses already during her hospitalization. Prescription printed after these discharge was completed I examined this patient and my medical decision-making was reviewed with the Resident Physician. I agree with the documented findings, disposition and treatment plan as described except to the extent set forth below.
[2016-09-09] MEDS ORDERED: Levofloxacin 750 MG/150 ML 750 MG/150 ML BAG IVPB SCH (13:00)
[2016-09-09] MEDS ORDERED: *HR* Warfarin 4 MG TABLET PO ONE (18:00)
[2016-09-11] MEDS ORDERED: levoFLOXacin 750 MG TABLET PO SCH (13:00)
== END 2016-09-09 15:28 | disposition home or self-care (01) | DRG 178 ==
LOC: 2ANU 11:17 → EMEROO 11:17 → SUATTDRO 17:34 → 2ANU 18:05
PROVIDERS: ADMIT Nurse Practitioner Family; ATTEND Internal Medicine